=== PATIENT | male | born 1985 | race African-American/Black ===

== ENCOUNTER 2022-07-03 02:58 | Inpatient (IN) | payer OTHER ==
[~2022-07-03] VITALS: Ht 190.5 cm; Wt 97.6 kg
[2022-07-03 09:23] VITALS: BP 113/77; PULSE 87; TEMP 99
[2022-07-03 09:47] LABS: HEMOGLOBIN 12.1 g/dl (13.5-18.0); MEAN CELL VOLUME 90 fl (80.0-100.0); MEAN CORPUSCULAR HEMOGLOBIN 32 pg (27-31); MEAN CORPUSCULAR HGB CONC 36 g/dl (33.0-37.0); MEAN PLATELET VOLUME 9.8 fl (7.4-10.4); PLATELET COUNT 206 K/mm3 (130-400); RED BLOOD COUNT 3.76 M/mm3 (4.20-5.60); REDCELL DISTRIBUTION WIDTH-CV 11.7 % (11.5-14.5)
[2022-07-03 09:51] LABS: INR 1.1 (0.8-3.0); PROTHROMBIN TIME 12.6 SECONDS (9.7-12.8)
[2022-07-03 09:54] LABS: PARTIAL THROMBOPLASTIN TIME 28.6 SECONDS (26.0-37.0)
[2022-07-03 10:06] LABS: MAGNESIUM 2.2 mg/dL (1.6-2.6)
[2022-07-03 10:07] LABS: TROPONIN-I 0.016 ng/mL (0.00-0.033)
[2022-07-03 10:26] LABS: CALCIUM 8.5 mg/dL (8.4-10.2); CREATININE, serum 0.87 mg/dL (0.72-1.25); POTASSIUM 3.5 mmol/L (3.5-4.5)
[2022-07-03 11:11] LABS: BAND 5 % (0-10); BASOPHIL 2 % (0-2); EOSINOPHIL 1 % (0-4); METAMYELOCYTE 1 % (0-0); NEUTROPHILS 44 % (42.0-75.2); PLATELET ESTIMATE NORMAL (NORMAL)
[2022-07-03 11:13] LABS: LYMPHOCYTE 40 % (20.0-51.0)
[2022-07-03 12:05] VITALS: BP 129/80; PULSE 82; TEMP 97.6
[2022-07-03 15:54] VITALS: BP 126/68; PULSE 95; TEMP 97.7
--- NOTE | 2022-07-03 18:57 | NUR ---
Pt had uneventful day. Only pain patient reported was a headache. IVF infusing per orders. Tele in place. POC discussed with patient who verbalizes understanding.
[2022-07-03 20:02] VITALS: BP 119/71; PULSE 91; TEMP 98.9
[2022-07-04] VITALS (7 sets, daily range): BP systolic 114–143; BP diastolic 72–85; PULSE 76–95; TEMP 97.7–98.5
--- NOTE | 2022-07-04 06:24 | NUR ---
PATIENT RESTED QUIETLY THIS SHIFT. PATIENT HAD COMPLAINTS OF DISCOMFORT AND WAS GIVEN PRN TYLENOL. PATIENT VOICED NO CONCERNS.
[2022-07-04 06:25] LABS: HEMOGLOBIN 11.4 g/dl (13.5-18.0); MEAN CORPUSCULAR HEMOGLOBIN 33 pg (27-31); MEAN CORPUSCULAR HGB CONC 35 g/dl (33.0-37.0); MEAN PLATELET VOLUME 10.3 fl (7.4-10.4); PLATELET COUNT 199 K/mm3 (130-400); RED BLOOD COUNT 3.44 M/mm3 (4.20-5.60); REDCELL DISTRIBUTION WIDTH-CV 11.9 % (11.5-14.5)
[2022-07-04 06:32] LABS: HEMATOCRIT 32.6 % (42.0-52.0); MEAN CELL VOLUME 95 fl (80.0-100.0)
[2022-07-04 07:30] LABS: ALBUMIN 2.7 gm/dL (3.5-5.0); BILIRUBIN,TOTAL 1.4 mg/dL (0.2-1.2); C-REACTIVE PROTEIN 4.44 mg/dL (0.00-0.50); CREATININE, serum 0.83 mg/dL (0.72-1.25); MAGNESIUM 1.8 mg/dL (1.6-2.6); POTASSIUM 4.1 mmol/L (3.5-4.5); TOTAL PROTEIN 5.8 gm/dL (6.2-8.1)
[2022-07-04 07:37] LABS: TROPONIN-I 0.027 ng/mL (0.00-0.033)
[2022-07-04 07:39] LABS: BAND 10 % (0-10); EOSINOPHIL 1 % (0-4); NEUTROPHILS 34 % (42.0-75.2)
[2022-07-04 07:40] LABS: PLATELET ESTIMATE NORMAL (NORMAL)
[2022-07-04 07:41] LABS: LYMPHOCYTE 51 % (20.0-51.0)
--- NOTE | 2022-07-04 11:36 | NUR ---
Scheduled medication given. Shift assessment preformed. VSS. Patient A&O. Patient denies any pain, discomfort SOA, or further needs at this time. Call light in reach.
--- NOTE | 2022-07-04 14:37 | NUR ---
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 Patient is happy, engages in conversation with a broad affect. 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 He lives at home with his current fiance in [place]. Patient is fully independent with his ADL's and does not require any DME or home oxygen needs. He seeks PCP care through [facility] and receives his medications through [facility]. Patient reports that he does have a [employer] established listing his mother Angelica [phone] (c)/[phone] (h) as his agent. Patient is planning on returning home once medically ready. Discharge plan: Home
--- NOTE | 2022-07-04 14:40 | NUR ---
[employer] faxed clinical updates to ALIVIA Turner (ph#[phone]) at [place]. .
--- NOTE | 2022-07-04 19:21 | NUR ---
Patient has had an uneventful day. VSS. Patient A&O. PRN tylenol given once this shift for headache, that has since resolved. Patient denies any further pain, discomfort, SOA, or needs at this time. Call light in reach.
[2022-07-05 03:39] VITALS: BP 131/87; PULSE 97; TEMP 99.8
[2022-07-05 06:36] LABS: MEAN CELL VOLUME 95 fl (80.0-100.0); MEAN CORPUSCULAR HEMOGLOBIN 33 pg (27-31); MEAN CORPUSCULAR HGB CONC 34 g/dl (33.0-37.0); MEAN PLATELET VOLUME 10.7 fl (7.4-10.4); PLATELET COUNT 207 K/mm3 (130-400); RED BLOOD COUNT 3.68 M/mm3 (4.20-5.60); REDCELL DISTRIBUTION WIDTH-CV 11.8 % (11.5-14.5)
[2022-07-05 06:39] LABS: CALCIUM 8.6 mg/dL (8.4-10.2); CREATININE, serum 0.96 mg/dL (0.72-1.25); POTASSIUM 4.2 mmol/L (3.5-4.5)
[2022-07-05 07:00] VITALS: BP 117/71; PULSE 72; TEMP 97.9
[2022-07-05 07:16] LABS: BAND 5 % (0-10); EOSINOPHIL 1 % (0-4); LYMPHOCYTE 60 % (20.0-51.0); NEUTROPHILS 27 % (42.0-75.2)
[2022-07-05 07:17] LABS: PLATELET ESTIMATE NORMAL (NORMAL)
--- NOTE | 2022-07-05 11:04 | NUR ---
Shift assessment preformed. Scheduled medications given by GIOVANNI Saba. VSS. Patient A&O. Patient c/o of 3 headache, but denies the need for interventions a this time. Patient denies any further pain, discomort, SOA, or further needs at this time. Call light in reach.
[2022-07-05 12:00] VITALS: BP 114/72; PULSE 85; TEMP 98.2
--- NOTE | 2022-07-05 13:12 | NUR ---
Dorothy: Faith Situation: dump attendant stopped by room on rounds Background: Pt was resting and content Assessment: No needs right now. Pt appreciated the visit Recommendation: Senior Customer Service Representative will follow up as needed
--- NOTE | 2022-07-05 18:46 | NUR ---
Patient had an uneventful day. VSS. Patient A&O. Tele DC'd per orders. Patient denies any pain, discomfort, SOA, or further needs at this time. Call light in reach.
[2022-07-05 20:07] VITALS: BP 131/84; PULSE 82; TEMP 98.3
[2022-07-06 00:09] VITALS: BP 118/70; PULSE 74; TEMP 97.9
[2022-07-06 04:46] VITALS: BP 119/68; PULSE 76; TEMP 98
[2022-07-06 06:26] LABS: CALCIUM 8.6 mg/dL (8.4-10.2); CREATININE, serum 0.86 mg/dL (0.72-1.25); POTASSIUM 4.3 mmol/L (3.5-4.5)
[2022-07-06 06:36] LABS: HEMATOCRIT 38.1 % (42.0-52.0); HEMOGLOBIN 13.1 g/dl (13.5-18.0); MEAN CELL VOLUME 96 fl (80.0-100.0); MEAN CORPUSCULAR HEMOGLOBIN 33 pg (27-31); MEAN CORPUSCULAR HGB CONC 34 g/dl (33.0-37.0); MEAN PLATELET VOLUME 10.2 fl (7.4-10.4); PLATELET COUNT 231 K/mm3 (130-400); RED BLOOD COUNT 3.99 M/mm3 (4.20-5.60)
[2022-07-06 07:13] LABS: BAND 3 % (0-10); NEUTROPHILS 26 % (42.0-75.2); PLATELET ESTIMATE NORMAL (NORMAL)
[2022-07-06 07:15] LABS: LYMPHOCYTE 66 % (20.0-51.0)
[2022-07-06 07:46] VITALS: BP 104/64; PULSE 80; TEMP 98
--- NOTE | 2022-07-06 08:00 | NUR ---
Pt awake in bed. Morning medications administered. Shift assessment completed. Peripheral line in R AC intact; no edema or redness. No complaints of pain or needs at this time. Call light within reach.
[2022-07-06 11:29] VITALS: BP 108/63; PULSE 81; TEMP 97.9
[2022-07-06] MEDS ORDERED: ASPIRIN 81M81 MG/TA2 PO ×2 (11:51)
--- NOTE | 2022-07-06 13:25 | NUR ---
Shift assessment preformed. Scheduled PO medications given by GIOVANNI Saba. Scheduled IV medications given by this RN. Patient given tylenol once this shift for a headache, which has since resolved. Patient deemed fit for discharge. IV DC'd, catheter intact, no signs of phlebitis. Discharge education/instructions reviewed. All questions reviewed. VSS. Patient denies any further pain, discomfort, SOA, or further needs at this time. Patient ambulated from building escorted by [employer] Staff. [employer] transporting home.
== END 2022-07-06 13:20 | disposition home or self-care (01) | DRG 864 ==
LOC: MEDICAL 02:58
PROVIDERS: Nurse Practitioner Family; Physician Assistant; Student in an Organized Health Care Education/Training Program; ADMIT Internal Medicine
DX: R50.9 Fever, unspecified (principal); E87.1 Hypo-osmolality and hyponatremia; Q21.1 Atrial septal defect; F17.210 Nicotine dependence, cigarettes, uncomplicated; E87.8 Other disorders of electrolyte and fluid balance, not elsewhere classified; E80.6 Other disorders of bilirubin metabolism; D64.9 Anemia, unspecified; E87.6 Hypokalemia; B97.89 Other viral agents as the cause of diseases classified elsewhere; E86.0 Dehydration; Z88.8 Allergy status to other drugs, medicaments and biological substances
CPT/HCPCS: A9500; G0378; J0696; J1650; J2405; J7030